=== PATIENT | female | born 1980 | race Two or more races ===

== ENCOUNTER 2021-02-06 01:09 | Emergency (ER) | payer OTHER ==
[~2021-02-06] VITALS: Ht 162.6 cm; Wt 79.4 kg
[2021-02-06] MEDS ORDERED: HYDROcodone-ACET 7.5/325MG TAB PO ONE ×2 (02:30→06:00)
[2021-02-06] MEDS ORDERED: SODIUM CHLORIDE 0.9% 1,000 ML IVB ONE (02:30)
[2021-02-06 02:48] LABS: Basophils # (auto) 0.1 10 ^3/uL (0-0.2); Basophils % (auto) 0.8 % (0.0-2.0); Eosinophils # (auto) 0.2 10 ^3/uL (0-0.8); Eosinophils % (auto) 2.7 % (0.0-7.0); Hematocrit 35.8 % (36.0-46.0); Hemoglobin 12.4 g/dL (12.2-16.2); Lymphocytes # (auto) 1.5 10 ^3/uL (0.4-5.4); Mean Corpuscular Hemoglobin 30.7 pg (28.0-32.0); Mean Corpuscular Hgb Conc. 34.7 g/dL (32.0-36.0); Mean Corpuscular Volume 88.5 fL (80.0-100.0); Monocytes # (auto) 0.4 10 ^3/uL (0-1.3); Monocytes % (auto) 5.1 % (0.0-12.0); Neutrophils # (auto) 5.8 10 ^3/uL (1.6-8.6); Neutrophils % (auto) 72.4 % (37.0-80.0); Nucleated Red Blood Cells % 0.1 %; Red Blood Cells 4.04 10^6/uL (4.0-5.20); Red Cell Distribution Width 15.6 % (11.8-14.3)
[2021-02-06 03:03] LABS: Albumin 3.4 g/dL (3.4-5.0); BUN/Creatinine Ratio 21.2; Calcium 9.2 mg/dL (8.5-10.1); Potassium 3.9 mmol/L (3.5-5.1)
[2021-02-06 03:06] LABS: Bilirubin, Total 0.1 mg/dL (0.2-1.0); Total Protein 6.7 g/dL (6.4-8.2)
[2021-02-06] MEDS ORDERED: LIDOCAINE 1% HCL (LOCAL ANESTH.) INJ 20ML MDV IJ ONE (03:45)
[2021-02-06] MEDS ORDERED: MORPHINE SULFATE 4 MG/ML SYR/VIAL IV ONE (04:00)
[2021-02-06] MEDS ORDERED: ceFAZolin 1GM/50ML 50 ML IV ONE (04:00)
[2021-02-06] MEDS ORDERED: ONDANSETRON HCL 4 MG/2 ML VIAL IV ONE (04:00)
[2021-02-06 05:24] VITALS: BP 120/84
== END 2021-02-06 07:36 ==
LOC: EEVIPCON 01:12 → ER 01:12
DX: S02.609A Fracture of mandible, unspecified, initial encounter for closed fracture (principal); S01.511A Laceration without foreign body of lip, initial encounter; R51.9 Headache, unspecified; M54.2 Cervicalgia; X58.XXXA Exposure to other specified factors, initial encounter; Y93.89 Activity, other specified; Y92.89 Other specified places as the place of occurrence of the external cause; Y99.8 Other external cause status
CPT/HCPCS: 12013; 36415; 70450; 70486; 71045; 80053; 83880; 84484; 85025; 96361; 96365; 96366; 99285; J0690; J2001; J2270; J2405; J7030

== ENCOUNTER 2021-03-20 15:39 | Inpatient (IN) | payer OTHER ==
[~2021-03-20] VITALS: Ht 160 cm; Wt 80.0 kg
[2021-03-20] MEDS ORDERED: ACETAMINOPHEN 500 MG TAB PO ONE (16:30)
[2021-03-20 16:52] LABS: Basophils # (auto) 0.1 10 ^3/uL (0-0.2); Basophils % (auto) 0.9 % (0.0-2.0); Eosinophils # (auto) 0.1 10 ^3/uL (0-0.8); Eosinophils % (auto) 1.3 % (0.0-7.0); Hematocrit 37.8 % (36.0-46.0); Hemoglobin 12.6 g/dL (12.2-16.2); Lymphocytes # (auto) 1.5 10 ^3/uL (0.4-5.4); Lymphocytes % (auto) 19.5 % (10.0-50.0); Mean Corpuscular Hemoglobin 29.7 pg (28.0-32.0); Mean Corpuscular Hgb Conc. 33.3 g/dL (32.0-36.0); Mean Corpuscular Volume 89.2 fL (80.0-100.0); Monocytes # (auto) 0.6 10 ^3/uL (0-1.3); Monocytes % (auto) 7.8 % (0.0-12.0); Neutrophils # (auto) 5.3 10 ^3/uL (1.6-8.6); Neutrophils % (auto) 70.5 % (37.0-80.0); Red Blood Cells 4.23 10^6/uL (4.0-5.20); White Blood Cell 7.5 10^3/uL (4.4-10.8)
[2021-03-20 16:55] LABS: Urine WBC None Seen /hpf (0 - 5)
[2021-03-20 17:08] LABS: Albumin 3.8 g/dL (3.4-5.0); Calcium 8.8 mg/dL (8.5-10.1); Potassium 3.9 mmol/L (3.5-5.1)
[2021-03-20 17:13] LABS: BUN/Creatinine Ratio 14.1; Bilirubin, Total 0.2 mg/dL (0.2-1.0); Total Protein 7.3 g/dL (6.4-8.2)
[2021-03-20 17:16] LABS: Urine Bacteria NONE SEEN /hpf (None Seen); Urine Blood Negative /uL (Negative); Urine Specific Gravity 1.004 (1.001-1.035)
[2021-03-20 17:32] LABS: Alcohol, Urine < 3.0 mg/dL (0-10); Amphetamine Screen, Urine NEGATIVE (NEGATIVE); Barbiturate Scree,Urine NEGATIVE (NEGATIVE); Benzodiazephine Screen, Urine NEGATIVE (NEGATIVE); Cannabinoid Screen, Urine NEGATIVE (NEGATIVE); Cocaine Screen, Urine NEGATIVE (NEGATIVE); Opiate Scree,Urine POSITIVE (NEGATIVE); Phencyclidine Screen, Urine NEGATIVE (NEGATIVE)
[2021-03-20] MEDS ORDERED: CLOPIDOGREL BISULFATE 75 MG TAB PO ONE (18:00)
[2021-03-20] MEDS ORDERED: DICYCLOMINE HCL 10 MG CAP PO PRN (18:00)
[2021-03-20] MEDS ORDERED: NITROGLYCERIN 0.4 MG SL TAB SL PRN (18:00)
[2021-03-20] MEDS ORDERED: MORPHINE SULFATE INJECTION 2 MG/ML SYRG IV PRN (18:00)
[2021-03-20] MEDS ORDERED: ALBUTEROL SULF 2.5 MG/0.5ML(0.5%) NEB SOLN NEB PRN (18:15)
[2021-03-20 20:25] VITALS: BP 120/67
[2021-03-20] MEDS: carBAMazepine 200 MG TAB PO SCH (21:26)
[2021-03-20 22:00] VITALS: BP 120/67
[2021-03-20] MEDS ORDERED: PRAZOSIN HCL 1 MG CAP PO ONE (22:00)
[2021-03-20] MEDS ORDERED: ACETAMINOPHEN/CODEINE#3 (300/30mg) TAB PO ONE (22:00)
[2021-03-20] MEDS: CHLORHEXIDINE 0.12% ORAL rinse 473ML MT SCH (23:38)
[2021-03-20] MEDS ORDERED: DICY20TA2 PO (23:50)
[2021-03-20] MEDS ORDERED: CHLO0.1238 MT (23:50)
[2021-03-20] MEDS ORDERED: VENL75CA78 PO (23:50)
[2021-03-20] MEDS ORDERED: ACET-1156 PO (23:50)
[2021-03-20] MEDS ORDERED: PRA1C PO (23:50)
[2021-03-20] MEDS ORDERED: CARB200T4 PO (23:50)
[2021-03-21] MEDS: DICYCLOMINE HCL 10 MG CAP PO PRN ×4 (01:07→19:31)
[2021-03-21] MEDS: ACETAMINOPHEN 325 MG TAB PO PRN ×2 (01:08→10:55)
[2021-03-21 05:00] VITALS: BP 91/44
[2021-03-21] MEDS ORDERED: DICYCLOMINE HCL 10 MG CAP PO SCH (06:00)
[2021-03-21] MEDS ORDERED: VENLAFAXINE HCL 37.5mg XR cap PO ONE (08:00)
[2021-03-21 09:00] VITALS: BP 111/66
[2021-03-21] MEDS ORDERED: LORazepam 2MG/ML-1ML VIAL IV PRN (09:15)
[2021-03-21] MEDS ORDERED: CLOPIDOGREL BISULFATE 75 MG TAB PO SCH (10:00)
[2021-03-21] MEDS: carBAMazepine 200 MG TAB PO SCH (10:04)
[2021-03-21] MEDS: CHLORHEXIDINE 0.12% ORAL rinse 473ML MT SCH (12:11)
[2021-03-21 13:00] VITALS: BP 122/65
[2021-03-21 17:00] VITALS: BP 130/70
== END 2021-03-21 20:45 | DRG 101 ==
LOC: ER 15:39 → EDUNIT# 15:39 → EEVIPCON 15:39 → EDBD 15:39 → OVERFLOW 17:53 → WEST WING 20:20
PROVIDERS: ADMIT Internal Medicine; ATTEND Internal Medicine
DX: G40.909 Epilepsy, unspecified, not intractable, without status epilepticus (principal); G45.9 Transient cerebral ischemic attack, unspecified; K50.90 Crohn's disease, unspecified, without complications; Z20.822 Contact with and (suspected) exposure to COVID-19; Z82.49 Family history of ischemic heart disease and other diseases of the circulatory system; Z83.3 Family history of diabetes mellitus
CPT/HCPCS: 36415; 70450; 70486; 70551; 71045; 80053; 80307; 81001; 84484; 85025; 87081; 87426; 93005; 93886; G0378